=== PATIENT | male | born 1965 | race Caucasian/White ===

== ENCOUNTER 2022-03-12 15:43 | Inpatient (IN) | payer MEDICAID ==
[~2022-03-12] VITALS: Ht 180.3 cm; Wt 113.4 kg
--- NOTE | 2022-03-12 15:57 | NUR ---
ROSAL[facility] ALS TO ER BED 1
[2022-03-12 16:11] VITALS: BP 120/53
--- NOTE | 2022-03-12 16:20 | NUR ---
PT WAS LYING ON BED 1 WITH TRACH TO T-BAR. VS WAS STABLE.
[2022-03-12 16:42] LABS: BASOPHILS % (AUTO) 0.2 % (0.0-2.0); EOSINOPHILS # (AUTO) 0.1 K/uL (0-0.4); EOSINOPHILS % (AUTO) 1.4 % (0.0-4.0); HEMATOCRIT 29.2 % (36-52); HEMOGLOBIN 9.2 g/dL (12.0-18.0); LYMPHOCYTES # (AUTO) 2.5 K/uL (2.0-11.5); LYMPHOCYTES % (AUTO) 24.3 % (20.5-51.1); MEAN CORPUSCULAR HEMOGLOBIN 25 pg (27-31); MEAN CORPUSCULAR HGB CONC 32 g/dL (33-37); MEAN CORPUSCULAR VOLUME 77.8 fL (80-94); MONOCYTES % (AUTO) 9.3 % (1.7-9.3); NEUTROPHILS # (AUTO) 6.7 K/uL (1.8-7.7); NEUTROPHILS % (AUTO) 64.8 % (42.2-75.2); PLATELET COUNT (AUTO) 344 K/uL (140-450); RED BLOOD CELL COUNT(AUTO) 3.75 MIL/uL (4.20-6.10); RED CELL DISTRIBUTION WIDTH 17.8 % (11.6-13.7); WHITE BLOOD COUNT (AUTO) 10.3 K/uL (4.8-10.8)
[2022-03-12 17:17] LABS: ALBUMIN 2.8 g/dL (3.4-5.0); ANION GAP 10.2 (8-16); CARBON DIOXIDE 38.1 mmol/L (21-32); CREATININE 0.9 mg/dL (0.6-1.3); POTASSIUM 4.3 mmol/L (3.5-5.1); TOTAL BILIRUBIN 0.2 mg/dL (0.0-1.0)
[2022-03-12 17:31] LABS: APPEARANCE,URINE CLEAR (CLEAR); BILIRUBIN,URINE NEGATIVE (NEGATIVE); BLOOD, URINE NEGATIVE (NEGATIVE); COLOR,URINE YELLOW (YELLOW); LEUKOCYTE ESTERASE ,URINE NEGATIVE (NEGATIVE); NITRITE, URINE NEGATIVE (NEGATIVE); UGLUCOSE NEGATIVE (NEGATIVE)
[2022-03-12] MEDS ORDERED: MORPHINE SULFATE 4 MG/ML SYR IVP PRN (17:55)
[2022-03-12] MEDS ORDERED: HYDROcodone/APAP 5/325 MG 1 TAB TAB PO PRN (17:55)
[2022-03-12] MEDS ORDERED: ONDANSETRON 4 MG/2 ML VIAL IVP PRN (17:55)
[2022-03-12] MEDS ORDERED: MAG SULF 2000 MG/WATER PREMIX 50 ML IV PRN (17:55)
[2022-03-12] MEDS ORDERED: ACETAMINOPHEN 325 MG TAB PO PRN (17:55)
[2022-03-12] MEDS ORDERED: KCL 20 MEQ/WATER INJ PREMIX 200 ML IV PRN (17:55)
[2022-03-12] MEDS ORDERED: LORazepam 1 MG TAB PO PRN (17:55)
[2022-03-12] MEDS ORDERED: POTASSIUM CHLORIDE 10 MEQ TABER PO PRN (17:55)
[2022-03-12] MEDS ORDERED: remdesivir COMMUNICATION ORDER 1 EA MISC MC PRN (18:05)
[2022-03-12] MEDS ORDERED: remdesivir CLINICAL MONITORING 1 EA MISC MC PRN (18:15)
[2022-03-12] MEDS ORDERED: REMDESIVIR. 200 MG in NACL 0.9% 100 ML IV SCH (18:45)
[2022-03-12] MEDS ORDERED: cefTRIAXone 1,000 MG VIAL ONE (18:48)
--- NOTE | 2022-03-12 18:50 | NUR ---
found patient on 3L by t-bar. Added cool aerosol at 30% fio2. patient had thick tenacious secretions. will continue to monitor patient.
[2022-03-12] MEDS: DEXT 5% / NACL 0.45% 1,000 ML IV SCH (18:53)
--- NOTE | 2022-03-12 19:21 | NUR ---
Patient lying in bed, awake, nonverbal, trach, chest rise and fall symmetrical, no s/s of distress. Addendum: 03/12/22 at 1938 by [email or web address] Patient lying in bed, awake, nonverbal, trach, chest rise and fall symmetrical, no s/s of distress, patient lying on right side pillow supported and heels supported with pillow.
[2022-03-12] MEDS ORDERED: NUTR-480 PO (20:52)
[2022-03-12] MEDS: METOPROLOL 25 MG TAB GT SCH (21:00)
[2022-03-12] MEDS ORDERED: ALBU2.5V IH (21:11)
[2022-03-12] MEDS ORDERED: ASPI-1822 GT (21:11)
[2022-03-12] MEDS ORDERED: TYL650S GT (21:11)
[2022-03-12] MEDS ORDERED: BACL10TA4 GT (21:12)
[2022-03-12] MEDS ORDERED: CLOP75TA55 GT (21:14)
[2022-03-12] MEDS ORDERED: FERR-13 GT (21:15)
[2022-03-12] MEDS ORDERED: ROB1 GT (21:16)
[2022-03-12] MEDS ORDERED: LACT1CAP63 PO (21:18)
[2022-03-12] MEDS ORDERED: MAGN400S60 GT (21:18)
[2022-03-12] MEDS ORDERED: OMEP40EC23 GT (21:20)
[2022-03-12] MEDS ORDERED: MULT-2472 GT (21:20)
--- NOTE | 2022-03-12 21:20 | NUR ---
TRANSPORTED PT TO CT ON TRANSPORT MONITOR WITH AMBU BAG. AT CT PT WAS SATING 99%. PATIENT HAS THICK TENACIOUS SECRETIONS AND ORAL SECRETIONS. SUCTIONED PATIENT PRE AND POST TRANSPORT. PATIENT WAS TRANSPORTED ON 3L OXYGEN AND THEN RETURNED TO BEDSIDE COOL AEROSOL.
[2022-03-12] MEDS ORDERED: PROP20TA29 GT (21:21)
[2022-03-12] MEDS ORDERED: METO-485 GT (21:22)
[2022-03-12] MEDS ORDERED: ACET-2619 GT (21:23)
[2022-03-12] MEDS ORDERED: MEDI30SO GT (21:24)
[2022-03-12] MEDS ORDERED: ASCO500T95 GT ×2 (21:25→21:40)
[2022-03-12] MEDS ORDERED: CHLO118S1 TP ×2 (21:40)
[2022-03-12] MEDS ORDERED: CRUSHER, PILL MC ONE (21:40)
--- NOTE | 2022-03-12 21:50 | NUR ---
Kari Sher RN verbally informed that patient's dyastolic BP 56 and patient not given metoprolol. Kari Sher RN verbalized understanding and also stated he "will give 2100 hr the azithromycin." Addendum: 03/12/22 at 2203 by [email or web address] Kari Sher RN verbally informed that patient's dyastolic BP 56 and patient not given metoprolol. Kari Sher RN verbalized understanding and also stated he "will give 2100 hr the azithromycin." Test Development Engineer verbally informed that Azithromycin now in medication cart in ER. Test Development Engineer verbalized understanding and stated she "will bring medication to floor nurse Antonio BINGHAM."
--- NOTE | 2022-03-12 22:06 | NUR ---
Patient will be admitted to care of Antonio BINGHAM. Admited to Telemetry. Will go to room 113. Belongings list completed. Report to Antonio RN, Antonio BINGHAM verbalized understanding of report, no further questions. Patient taken to floor by RN, RT, and regulatory and compliance technician. Patient awake, on oxygen via trach, surgical mask on, IV patent.
--- NOTE | 2022-03-12 22:07 | NUR ---
Note undone in ED - 03/12/22 at 2254 by [email or web address] Patient will be admitted to care of Antonio BINGHAM. Admited to Telemetry. Will go to room 113. Belongings list completed. Report to Antonio Alvarez RN, RN verbalized understanding of report, no further questions. Addendum: 03/12/22 at 2253 by [email or web address] Amendment undone in ED - 03/12/22 at 2254 by [email or web address] Patient will be admitted to care of Antonio BINGHAM. Admited to Telemetry. Will go to room 113. Belongings list completed. Report to Antonio Alvarez RN, RN verbalized understanding of report, no further questions. Patient taken to floor by RN, RT, and zyglo technician. Patient awake, on oxygen via trach, surgical mask on, IV patent.
[2022-03-12 22:25] VITALS: BP 133/57
--- NOTE | 2022-03-12 22:25 | NUR ---
Admitted from ER , with chief complaint of TACHYCARDIA AND TACHYPNEA , 57 y/o from [facility] ,Male, aphasic, on trach to tbar, on 30% fio2, 6l o2. breathing equal and unlabored. moderate amount of secretions noted.pt was cleaned with MACHINE WHITENER Latonya, maintenance fluids started.IV on r hand g18. , procedures, ID bracelet on. Belongings list checked.All precautions in place. call light within reach. will continue to monitor.
[2022-03-12] MEDS: AZITHROMYCIN 500 MG in DEXTROSE 5% 250 ML IV SCH (22:30)
[2022-03-12] MEDS ORDERED: AZITHROMYCIN 500 MG INJ VIAL IV ONE (22:57)
--- NOTE | 2022-03-12 23:00 | NUR ---
scheduled medication given.pt tolerated well. will continue to monitor
--- NOTE | 2022-03-13 02:28 | NUR ---
PT ASLEEP. NO S/SX OF DISTRESS NOTED. BREATHING EQUAL AND UNLABORED. SR ON TELE 86. ALL PRECAUTIONS IN PLACE. WILL CONTINUE TO MONITOR.
[2022-03-13 04:00] VITALS: BP 133/57
--- NOTE | 2022-03-13 06:39 | NUR ---
PT IS STABLE. NO ACUTE EVENTS THROUGHOUT THE NIGHT. ALL NEEDS ATTENDED. NO S/SX OF DISTRESS OF THE MOMENT.ALL PRECAUTIONS IN PLACE.. WILL ENDORSE TO AM SHIFT NURSE.
[2022-03-13 07:25] LABS: ALBUMIN 2.7 g/dL (3.4-5.0); ANION GAP 12.1 (8-16); CREATININE 0.7 mg/dL (0.6-1.3); POTASSIUM 4.1 mmol/L (3.5-5.1); TOTAL BILIRUBIN 0.3 mg/dL (0.0-1.0)
[2022-03-13 07:31] LABS: BASOPHILS % (AUTO) 0.2 % (0.0-2.0); EOSINOPHILS % (AUTO) 0.1 % (0.0-4.0); HEMATOCRIT 29.9 % (36-52); HEMOGLOBIN 9.4 g/dL (12.0-18.0); LYMPHOCYTES # (AUTO) 1.5 K/uL (2.0-11.5); LYMPHOCYTES % (AUTO) 22.7 % (20.5-51.1); MEAN CORPUSCULAR HEMOGLOBIN 25 pg (27-31); MEAN CORPUSCULAR HGB CONC 32 g/dL (33-37); MEAN CORPUSCULAR VOLUME 77.8 fL (80-94); MONOCYTES # (AUTO) 0.3 K/uL (0.8-1.0); MONOCYTES % (AUTO) 4.9 % (1.7-9.3); NEUTROPHILS # (AUTO) 4.8 K/uL (1.8-7.7); NEUTROPHILS % (AUTO) 72.1 % (42.2-75.2); PLATELET COUNT (AUTO) 308 K/uL (140-450); RED BLOOD CELL COUNT(AUTO) 3.84 MIL/uL (4.20-6.10); RED CELL DISTRIBUTION WIDTH 17.2 % (11.6-13.7); WHITE BLOOD COUNT (AUTO) 6.6 K/uL (4.8-10.8)
[2022-03-13] MEDS: DEXT 5% / NACL 0.45% 1,000 ML IV SCH ×2 (07:44→20:40)
[2022-03-13 08:00] VITALS: BP 128/68
[2022-03-13] MEDS: ENOXAPARIN 40 MG/0.4 ML SYR SUBQ SCH (09:07)
[2022-03-13] MEDS: METOPROLOL 25 MG TAB GT SCH ×2 (09:08→21:00)
[2022-03-13] MEDS: PANTOPRAZOLE 40 MG TABEC PO SCH (09:09)
[2022-03-13] MEDS: ASPIRIN 81 MG TAB.CHEW GT SCH (09:09)
[2022-03-13] MEDS: CLOPIDOGREL 75 MG TAB GT SCH (09:09)
--- NOTE | 2022-03-13 11:18 | NUR ---
PATIENT HAS BEEN SCREENED AND CATEGORIZED HIGH NUTRITION RISK. PATIENT WILL BE SEEN WITHIN 1-2 DAYS OF ADMISSION. 03/13/2212/23/[address] BY [address]ASH KRA[address]
[2022-03-13 12:00] VITALS: BP 124/78
[2022-03-13] MEDS: ALBUTEROL SULFATE/IPRATROPIU 3 ML SOL IH SCH ×2 (13:50→19:00)
--- NOTE | 2022-03-13 13:50 | NUR ---
NEW RT ORDER FOR DUONEB Q6H. STARTED AT 1300. PT HAS LARGE AMOUNTS OF THICK WHITISH SECRETIONS. SECRETIONS WERE IN ALL TUBING. FISCHER, TUBING, AND GAUZE REPLACED. SET UP NEBULIZER FOR PT. TREATMENT. PT HAS SECRETIONS IN MOUTH BUT DOES NOT WANT OT OPEN HIS MOUTH. TIP OF YANKAUER INSERTED INTO MOUTH AFTER HE SPIT OUT SOME SECRETIONS. ABLE TO SX A SMALL AMOUNT OF WHITE SECRETIONS ORALLY.
--- NOTE | 2022-03-13 14:50 | NUR ---
03/13/22 RD INITIAL ASSESSMENT COMPLETED PLEASE REFER TO NUTRITION ASSESSMENT UNDER CARE ACTIVITY FOR ESTIMATED NUTRITIONAL NEEDS. 1. RECOMMEND JEVITY 1.2 @ 75 MLS/HR, FWF 150 ML Q4H, PROSOURCE BID TOLERATED WHEN MEDICALLY APPROPRIATE. -START TF AT 20 MLS/HR, INCREASE BY 20 ML Q4H TOLERATED -WITH PROSOURCE BID, PT WILL RECEIVE 1800 ML TOTAL VOLUME, 2280 KCAL, 129 GM PROTEIN, AND 2350 ML FREE WATER; ADEQUATE 2. MONITOR GASTRIC RESIDUALS AND NUTRITION-RELATED LAB VALUES 3. CONSULT RD PRN 4. RD TO FOLLOW-UP 3-5 DAYS, MODERATE RISK REVIEWED BY SUBHASH KRAFT RD
[2022-03-13 16:00] VITALS: BP 138/73
[2022-03-13] MEDS: REMDESIVIR. 100 MG in NACL 0.9% 100 ML IV SCH (18:01)
--- NOTE | 2022-03-13 19:30 | NUR ---
RECEIVED PT FROM DAY RN FOR CONTINUITY OF CARE.PT NON-VERBAL. ON TRACH TO T-BAR, 30% FIO2, ON 6L O2. BREATHING EVEN AND UNLABORED. O2 SAT AT 96%. IV ON R HAND G20, RUNNING FLUIDS PER MD ORDER. G TUBE IN PLACE RUNNING TUBE FEEDING PER MD ORDER. NO RESIDUALS NOTED. COLE IN PLACE, CLEAR YELLOW URINE DRAINING. ALL PRECAUTIONS IN PLACE. CALL LIGHT WITHIN REACH. WILL CONTINUE TO MONITOR.
[2022-03-13 20:00] VITALS: BP 131/92
[2022-03-13] MEDS: AZITHROMYCIN 500 MG in DEXTROSE 5% 250 ML IV SCH (20:06)
--- NOTE | 2022-03-13 21:00 | NUR ---
scheduled medication given.pt tolerated well. will continue to monitor
[2022-03-13] MEDS: SENNA 8.6 MG TAB GT SCH (22:09)
[2022-03-14] VITALS: BP 121/70
--- NOTE | 2022-03-14 00:55 | NUR ---
PT ASLEEP. NO S/SX OF DISTRESS NOTED. BREATHING EQUAL AND UNLABORED. SR ON TELE 86. ALL PRECAUTIONS IN PLACE. WILL CONTINUE TO MONITOR.O2 SAT AT 96%.
[2022-03-14] MEDS: ALBUTEROL SULFATE/IPRATROPIU 3 ML SOL IH SCH ×2 (01:00→15:07)
[2022-03-14 04:00] VITALS: BP 121/76
[2022-03-14 07:08] LABS: BASOPHILS # (AUTO) 0.1 K/uL (0.00-0.22); BASOPHILS % (AUTO) 0.4 % (0.0-2.0); EOSINOPHILS # (AUTO) 0.1 K/uL (0-0.4); HEMOGLOBIN 8.8 g/dL (12.0-18.0); LYMPHOCYTES # (AUTO) 1.5 K/uL (2.0-11.5); LYMPHOCYTES % (AUTO) 12.3 % (20.5-51.1); MEAN CORPUSCULAR HEMOGLOBIN 24 pg (27-31); MEAN CORPUSCULAR HGB CONC 32 g/dL (33-37); MEAN CORPUSCULAR VOLUME 77.4 fL (80-94); MONOCYTES # (AUTO) 1.7 K/uL (0.8-1.0); MONOCYTES % (AUTO) 13.2 % (1.7-9.3); NEUTROPHILS # (AUTO) 9.1 K/uL (1.8-7.7); NEUTROPHILS % (AUTO) 73.1 % (42.2-75.2); PLATELET COUNT (AUTO) 309 K/uL (140-450); RED BLOOD CELL COUNT(AUTO) 3.62 MIL/uL (4.20-6.10); RED CELL DISTRIBUTION WIDTH 17.1 % (11.6-13.7); WHITE BLOOD COUNT (AUTO) 12.5 K/uL (4.8-10.8)
[2022-03-14 07:12] LABS: ALBUMIN 2.5 g/dL (3.4-5.0); ANION GAP 9.8 (8-16); CARBON DIOXIDE 36.1 mmol/L (21-32); CREATININE 0.6 mg/dL (0.6-1.3); POTASSIUM 3.9 mmol/L (3.5-5.1); TOTAL BILIRUBIN 0.2 mg/dL (0.0-1.0)
[2022-03-14 08:00] VITALS: BP 112/80
[2022-03-14] MEDS: METOPROLOL 25 MG TAB GT SCH ×2 (09:16→20:32)
[2022-03-14] MEDS: ASPIRIN 81 MG TAB.CHEW GT SCH (09:16)
[2022-03-14] MEDS: CLOPIDOGREL 75 MG TAB GT SCH (09:16)
[2022-03-14] MEDS: PANTOPRAZOLE 40 MG TABEC PO SCH (09:17)
[2022-03-14] MEDS: SENNA 8.6 MG TAB GT SCH ×2 (09:17→20:33)
[2022-03-14] MEDS: ENOXAPARIN 40 MG/0.4 ML SYR SUBQ SCH (09:21)
[2022-03-14] MEDS: DEXT 5% / NACL 0.45% 1,000 ML IV SCH ×2 (11:13→23:20)
[2022-03-14 12:00] VITALS: BP 97/65
--- NOTE | 2022-03-14 13:47 | NUR ---
DC PLANNING GEOVANNY OUTREACHED TO [facility], MOM, TO GATHER COLLATERAL INFORMATION, HOWEVER, NO ANSWER. LEFT MESSAGE REQUESTING A RETURN PHONE CALL. GEOVANNY OUTREACHED TO [facility], PT'S SUBACUTE TO GATHER COLLATERAL INFORMATION. SPOKE WITH PATRICIO, NURSING STAFF, WHO REPORTS PT IS IN SUBACUTE CARE WITH [facility], ADMISSION DATE 01/09/2020. PATRICIO REPORTS PTS EMERGENCY CONTACT AND MDM [facility], . PT IS REPORTED TO HAVE AN ADDITIONAL EMERGENCY CONTACT, XIN MARCUM, GF, . PATRICIO REPORTS PT IS A SUBACUTE CARE AND IS TOTAL CARE WITH FACILITY. PT IS REPORTED TO BE NONVERBAL. FAMILY IS REPORTED TO BE ACTIVE IN PTS CARE AND VISIT WITH PT FREQUENTLY; 1X WEEKLY. PATRICIO REPORTS DC PLAN IS FOR PT TO RETURN TO [facility], WHEN STABLE. Addendum: 03/14/22 at 1348 by Germaine CEBALLOS Amended: Links added.
[2022-03-14 16:00] VITALS: BP 117/62
[2022-03-14] MEDS: REMDESIVIR. 100 MG in NACL 0.9% 100 ML IV SCH (17:07)
--- NOTE | 2022-03-14 19:25 | NUR ---
RECEIVED REPORT FROM DAY SHIFT ZACHERY SRINIVASAN FOR CONTINUITY OF CARE. PT IS AWAKE AND RESTING IN BED. PT IS ON T-BAR 6L SATING 96%. PT HAS FC DRAINING TO GRAVITY. PT HAS RIGHT HAND 22 GAUGE RUNNING D5 1/2 NS AT 75 CC/HR. PT HAS GTUBE WITH FEEDING JEVITY 1.2 65 CC/HR WITH FWF 100 Q8H. HEEL PROTECTORS ON. BED AT THE LOWEST POSITION. HEAD OF THE BED RAISED. SAFETY PRECAUTIONS TAKEN. WILL CONTINUE TO MONITOR THE PT.
[2022-03-14 20:00] VITALS: BP 137/77
[2022-03-14] MEDS: AZITHROMYCIN 500 MG in DEXTROSE 5% 250 ML IV SCH (20:33)
--- NOTE | 2022-03-14 20:35 | NUR ---
SCHEDULE MEDICATION GIVEN. NO ADVERSE REACTION NOTED. WILL CONTINUE TO MONITOR THE PT.
[2022-03-15] VITALS: BP 126/67
--- NOTE | 2022-03-15 | NUR ---
VITAL SIGNS TAKEN AND STABLE. PT WAS REPOSITION. TOLERATED IT WELL. BED AT THE LOWEST POSITION. HEAD OF THE BED RAISED. WILL CONTINUE TO MONITOR THE PT.
--- NOTE | 2022-03-15 02:33 | NUR ---
OBSERVED PT. PT IS AWAKE RESTING IN BED. PT IS NOT IN ANY DISTRESS. BREATHING EVEN AND UNLABORED. PT IS SATING 96%. SAFETY PRECAUTIONS TAKEN. WILL CONTINUE TO MONITOR THE PT.
[2022-03-15 04:00] VITALS: BP 139/74
--- NOTE | 2022-03-15 04:45 | NUR ---
PT IS OBSERVED. PT IS SLEEPING COMFORTABLY IN BED. PT IS NOT IN ANY DISTRESS. BREATHING EVEN AND UNLABORED. SAFETY PRECAUTIONS TAKEN. WILL CONTINUE TO MONITOR THE PT.
--- NOTE | 2022-03-15 07:05 | NUR ---
ENDORSED PT TO DAY SHIFT ZACHERY SRINIVASAN FOR CONTINUITY OF CARE. PT IS STABLE.
[2022-03-15 07:25] LABS: ALBUMIN 2.5 g/dL (3.4-5.0); ANION GAP 8.9 (8-16); CARBON DIOXIDE 35.2 mmol/L (21-32); CREATININE 0.6 mg/dL (0.6-1.3); HEMATOCRIT 28.3 % (36-52); HEMOGLOBIN 8.8 g/dL (12.0-18.0); MEAN CORPUSCULAR HEMOGLOBIN 24 pg (27-31); MEAN CORPUSCULAR HGB CONC 31 g/dL (33-37); PLATELET COUNT (AUTO) 313 K/uL (140-450); POTASSIUM 4.1 mmol/L (3.5-5.1); RED BLOOD CELL COUNT(AUTO) 3.63 MIL/uL (4.20-6.10); RED CELL DISTRIBUTION WIDTH 17.6 % (11.6-13.7); TOTAL BILIRUBIN 0.2 mg/dL (0.0-1.0); WHITE BLOOD COUNT (AUTO) 9.5 K/uL (4.8-10.8)
[2022-03-15 08:00] VITALS: BP 128/60
--- NOTE | 2022-03-15 08:20 | NUR ---
RECEIVED ON A COOL AEROSOL AT 30%/6 LPM TO AN INLINE SUCTION CATHETER/PORTEX DFEN #7 AIRWAY; SECURED WITH A BENEDICTO TRACH TIE STABLE GOOD CHEST RISE DEEP TRACHEAL SUCTION FOR MODERATE THIN PALE YELLOW SECRETIONS SATURATION PRE SUCTIONING AT 97% ON FIO2 OF 30% TITRATED FIO2 TO 28% ZARINA/RN NOTIFIED
[2022-03-15 09:30] LABS: BASOPHILS % (MANUAL) 0 % (0-2); EOSINOPHILS % (MANUAL) 0 % (0-4); LYMPHOCYTES % (MANUAL) 24 % (20-46); MONOCYTES % (MANUAL) 10 % (5-12)
[2022-03-15] MEDS: ALBUTEROL SULFATE/IPRATROPIU 3 ML SOL IH SCH ×3 (09:46→19:50)
[2022-03-15] MEDS: ASPIRIN 81 MG TAB.CHEW GT SCH (09:55)
[2022-03-15] MEDS: METOPROLOL 25 MG TAB GT SCH ×2 (09:55→20:21)
[2022-03-15] MEDS: SENNA 8.6 MG TAB GT SCH ×2 (09:56→20:21)
[2022-03-15] MEDS: PANTOPRAZOLE 40 MG TABEC PO SCH (09:56)
[2022-03-15] MEDS: CLOPIDOGREL 75 MG TAB GT SCH (09:56)
[2022-03-15] MEDS: ENOXAPARIN 40 MG/0.4 ML SYR SUBQ SCH (09:59)
[2022-03-15 12:00] VITALS: BP 122/66
[2022-03-15] MEDS: DEXT 5% / NACL 0.45% 1,000 ML IV SCH (12:37)
[2022-03-15 16:00] VITALS: BP 130/62
[2022-03-15] MEDS: REMDESIVIR. 100 MG in NACL 0.9% 100 ML IV SCH (16:46)
--- NOTE | 2022-03-15 19:30 | NUR ---
RECEIVED REPORT FROM DAY SHIFT ZACHERY SRINIVASAN FOR CONTINUITY OF CARE. PT IS AWAKE AND RESTING IN BED. PT IS ON T-BAR 6L SATING 96%. PT HAS FC DRAINING TO GRAVITY. PT HAS RIGHT HAND 18 GAUGE RUNNING D5 1/2 NS AT 75 CC/HR. PT HAS GTUBE WITH FEEDING JEVITY 1.2 65 CC/HR WITH FWF 100 Q8H. HEEL PROTECTORS ON. BED AT THE LOWEST POSITION. HEAD OF THE BED RAISED. SAFETY PRECAUTIONS TAKEN. WILL CONTINUE TO MONITOR THE PT.
[2022-03-15 20:00] VITALS: BP 135/81
--- NOTE | 2022-03-15 20:21 | NUR ---
SCHEDULE MEDICATIONS GIVEN. NO ADVERSE REACTION NOTED. WILL CONTINUE TO MONITOR THE PT.
[2022-03-15] MEDS: AZITHROMYCIN 500 MG in DEXTROSE 5% 250 ML IV SCH (20:22)
[2022-03-16] VITALS: BP 109/66
--- NOTE | 2022-03-16 00:05 | NUR ---
VITAL SIGNS TAKEN AND STABLE. PT REPOSITION. COLE DRAINED. BED AT THE LOWEST POSITION. HEAD OF BED RAISED. WILL CONTINUE TO MONITOR THE PT.
[2022-03-16] MEDS: ALBUTEROL SULFATE/IPRATROPIU 3 ML SOL IH SCH ×4 (01:17→21:39)
[2022-03-16] MEDS: DEXT 5% / NACL 0.45% 1,000 ML IV SCH ×2 (02:00→16:00)
--- NOTE | 2022-03-16 02:50 | NUR ---
OBSERVED PT. PT IS RESTING COMFORTABLY IN BED. PT NOT IN ANY RESPIRATORY DISTRESS. PT IS SATING 96%. IVF RUNNING PER MD ORDER. FEEDING RUNNING PER MD ORDER. WILL CONTINUE TO MONITOR THE PT.
[2022-03-16 04:00] VITALS: BP 112/76
--- NOTE | 2022-03-16 04:55 | NUR ---
PT WAS CLEANED AND CHANGED. TOLERATED IT WELL. NOT IN ANY RESPIRATORY DISTRESS. WILL CONTINUE TO MONITOR THE PT.
[2022-03-16 07:21] LABS: EOSINOPHILS % (AUTO) 0.1 % (0.0-4.0); HEMATOCRIT 30.9 % (36-52); HEMOGLOBIN 9.7 g/dL (12.0-18.0); LYMPHOCYTES # (AUTO) 1.9 K/uL (2.0-11.5); LYMPHOCYTES % (AUTO) 23.5 % (20.5-51.1); MEAN CORPUSCULAR HEMOGLOBIN 25 pg (27-31); MEAN CORPUSCULAR HGB CONC 31 g/dL (33-37); MONOCYTES % (AUTO) 12.9 % (1.7-9.3); NEUTROPHILS # (AUTO) 5.1 K/uL (1.8-7.7); NEUTROPHILS % (AUTO) 63.5 % (42.2-75.2); PLATELET COUNT (AUTO) 272 K/uL (140-450); RED BLOOD CELL COUNT(AUTO) 3.96 MIL/uL (4.20-6.10); RED CELL DISTRIBUTION WIDTH 17.6 % (11.6-13.7)
--- NOTE | 2022-03-16 07:21 | NUR ---
ENDORSED PT TO DAY SHIFT ZACHERY SRINIVASAN FOR CONTINUITY OF CARE. PT IS STABLE.
[2022-03-16 07:25] LABS: ANION GAP 8.7 (8-16); CARBON DIOXIDE 33.6 mmol/L (21-32); CREATININE 0.6 mg/dL (0.6-1.3); POTASSIUM 4.3 mmol/L (3.5-5.1)
[2022-03-16 07:28] LABS: ALBUMIN 2.5 g/dL (3.4-5.0); ANION GAP 10.5 (8-16); CARBON DIOXIDE 33.8 mmol/L (21-32); CREATININE 0.6 mg/dL (0.6-1.3); MAGNESIUM 1.8 mg/dL (1.8-2.4); POTASSIUM 4.3 mmol/L (3.5-5.1); TOTAL BILIRUBIN 0.2 mg/dL (0.0-1.0)
--- NOTE | 2022-03-16 08:20 | NUR ---
RECEIVED ON A COOL AEROSOL TO TRACH AT AN FIO2 OF 28%/6 LPM SATURATION 97% DEEP TRACHEAL SUCTION FOR COPIOUS FROTHY TO THIN YELLOW SECRETIONS AIRWAY PATENT
[2022-03-16 09:09] VITALS: BP 107/63
[2022-03-16] MEDS: ASPIRIN 81 MG TAB.CHEW GT SCH (09:25)
[2022-03-16] MEDS: METOPROLOL 25 MG TAB GT SCH ×2 (09:26→20:52)
[2022-03-16] MEDS: CLOPIDOGREL 75 MG TAB GT SCH (09:26)
[2022-03-16] MEDS: SENNA 8.6 MG TAB GT SCH ×2 (09:26→20:52)
[2022-03-16] MEDS: PANTOPRAZOLE 40 MG TABEC PO SCH (09:32)
[2022-03-16] MEDS: ENOXAPARIN 40 MG/0.4 ML SYR SUBQ SCH (09:33)
[2022-03-16 12:00] VITALS: BP 120/75
--- NOTE | 2022-03-16 14:21 | NUR ---
STABLE GOOD CHEST RISE DEEP TRACHEAL SUCTION FOR MODERATE THIN TO FROTHY YELLOW SECRETIONS AIRWAY PATENT
--- NOTE | 2022-03-16 14:27 | NUR ---
[facility] IS HOLDING PATIENT BED FOR DISCHARGE.
[2022-03-16 16:00] VITALS: BP 104/50
[2022-03-16] MEDS: REMDESIVIR. 100 MG in NACL 0.9% 100 ML IV SCH (16:29)
--- NOTE | 2022-03-16 19:35 | NUR ---
RECEIVED PATIENT FROM DAY SHIFT NURSE ZARINA. PATIENT IS AWAKE NON VERBAL TRACH TO T-BAR. NO S/S OF RESPIRATORY DISTRESS. FLACC 0. BREATHING REGULAR NON LABORED. IVF D5 1/2 NS INFUSING AT 75 ML/HR ON THE RIGHT HAND. TUBE FEEDING JEVITY 1.2 RUNNING AT 65 ML/HR TOLERATING WELL. COLE CATHETER DRAINING WELL. CALL LIGHT WITHIN REACH. ALL SAFETY PRECAUTIONS ARE IN PLACE. HEAD OF BED ELEVATED. BED WHEELS LOCKED.
[2022-03-16 20:00] VITALS: BP 134/81
--- NOTE | 2022-03-16 20:52 | NUR ---
ALL 2100 SCHEDULED MEDICATIONS ADMINISTERED.
[2022-03-16] MEDS: AZITHROMYCIN 500 MG in DEXTROSE 5% 250 ML IV SCH (20:54)
[2022-03-17] VITALS: BP 108/68
[2022-03-17] MEDS: ALBUTEROL SULFATE/IPRATROPIU 3 ML SOL IH SCH ×3 (02:04→14:31)
[2022-03-17 04:00] VITALS: BP 100/61
[2022-03-17] MEDS: DEXT 5% / NACL 0.45% 1,000 ML IV SCH (04:40)
--- NOTE | 2022-03-17 07:03 | NUR ---
ENDORSED PATIENT TO RN ZARINA DAY SHIFT NURSE FOR CONTINUITY OF CARE.
[2022-03-17 07:26] LABS: BASOPHILS % (AUTO) 0.1 % (0.0-2.0); EOSINOPHILS % (AUTO) 0.1 % (0.0-4.0); HEMATOCRIT 30.6 % (36-52); HEMOGLOBIN 9.5 g/dL (12.0-18.0); LYMPHOCYTES # (AUTO) 2.7 K/uL (2.0-11.5); LYMPHOCYTES % (AUTO) 24.6 % (20.5-51.1); MEAN CORPUSCULAR HEMOGLOBIN 25 pg (27-31); MEAN CORPUSCULAR HGB CONC 31 g/dL (33-37); MEAN CORPUSCULAR VOLUME 78.5 fL (80-94); MONOCYTES # (AUTO) 1.5 K/uL (0.8-1.0); MONOCYTES % (AUTO) 13.4 % (1.7-9.3); NEUTROPHILS # (AUTO) 6.8 K/uL (1.8-7.7); NEUTROPHILS % (AUTO) 61.8 % (42.2-75.2); PLATELET COUNT (AUTO) 275 K/uL (140-450); RED CELL DISTRIBUTION WIDTH 17.6 % (11.6-13.7)
[2022-03-17 08:00] VITALS: BP 97/53
[2022-03-17 08:05] LABS: ALBUMIN 2.5 g/dL (3.4-5.0); ANION GAP 9.3 (8-16); POTASSIUM 4.3 mmol/L (3.5-5.1); TOTAL BILIRUBIN 0.2 mg/dL (0.0-1.0)
--- NOTE | 2022-03-17 08:14 | NUR ---
RECEIVED ON A COOL AEROSOL TO TRACH AT 28%/6 LPM SATURATION 97%; GOOD CHEST RISE DEEP TRACHEAL SUCTION FOR LARGE THIN TO FROTHY YELLOW SECRETIONS AIRWAY PATENT
[2022-03-17 08:42] LABS: CREATININE 0.7 mg/dL (0.6-1.3)
[2022-03-17] MEDS: CLOPIDOGREL 75 MG TAB GT SCH (09:06)
[2022-03-17] MEDS: PANTOPRAZOLE 40 MG TABEC PO SCH (09:06)
[2022-03-17] MEDS: SENNA 8.6 MG TAB GT SCH (09:06)
[2022-03-17] MEDS: METOPROLOL 25 MG TAB GT SCH (09:06)
[2022-03-17] MEDS: ASPIRIN 81 MG TAB.CHEW GT SCH (09:07)
[2022-03-17] MEDS: ENOXAPARIN 40 MG/0.4 ML SYR SUBQ SCH (09:09)
[2022-03-17 12:00] VITALS: BP 108/62
--- NOTE | 2022-03-17 15:25 | NUR ---
[facility] AT BEDSIDE; TRACHEAL SUCTION FOR SMALL THIN PALE YELLOW SECRETIONS AIRWAY PATENT; REMOVED FROM COOL AEROSOL PLACED ON SUPPLEMENTAL OXYGEN AT 3 LPM VIA TRACH MASK; EDUCATION PROVIDED TO [facility]
--- NOTE | 2022-03-17 15:27 | NUR ---
PATIENT DISCHARGE TO [facility] ROOM 405 A WITH [facility] TEAM. ALL BELONGINGS AND DISCHARGE PAPERWORK SENT FOR PATIENT CARE.
== END 2022-03-17 15:18 | DRG 720 ==
LOC: MED 15:43 → EDSEX 15:43 → OBSVTOIN 17:58 → MTU 17:58
PROVIDERS: ADMIT Internal Medicine; ATTEND Internal Medicine
PROC: XW033E5 Introduction of Remdesivir Anti-infective into Peripheral Vein, Percutaneous Approach, New Technology Group 5 (ICD-10-PCS; principal; 2022-03-12)
PROC: 5A1935Z Respiratory Ventilation, Less than 24 Consecutive Hours (ICD-10-PCS; 2022-03-16)
DX: A41.9 Sepsis, unspecified organism (principal); J12.82 Pneumonia due to coronavirus disease 2019; J96.11 Chronic respiratory failure with hypoxia; U07.1 COVID-19; R53.2 Functional quadriplegia; Z66 Do not resuscitate; I65.29 Occlusion and stenosis of unspecified carotid artery; I10 Essential (primary) hypertension; R13.10 Dysphagia, unspecified; K21.9 Gastro-esophageal reflux disease without esophagitis; K59.00 Constipation, unspecified; D50.9 Iron deficiency anemia, unspecified; I69.951 Hemiplegia and hemiparesis following unspecified cerebrovascular disease affecting right dominant side
CPT/HCPCS: 36415; 71045; 80048; 80053; 81003; 83605; 83735; 83880; 84484; 85025; 87040; 87081; 87086; 93005; 94640; 96365; 96367; 99285; J0456; J0696; J1650; J7060; Q0092